=== PATIENT | male | born 1980 | race Caucasian/White ===

== ENCOUNTER → 2018-10-05 | Outpatient (CLI) | payer OTHER ==
[~2018-10-05] MED LIST: IOPAMIDOL (ISOVUE-370) 150 ML BTL IV ONE
== END | disposition home or self-care (01) ==
LOC: CIMAGING 14:39
PROVIDERS: ATTEND Internal Medicine Cardiovascular Disease
DX: R79.89 Other specified abnormal findings of blood chemistry (principal); I51.7 Cardiomegaly; R93.1 Abnormal findings on diagnostic imaging of heart and coronary circulation
CPT/HCPCS: 71275-PO; Q9967

== ENCOUNTER 2018-10-11 11:03 | Inpatient (IN) | payer OTHER ==
[2018-10-11] MEDS ORDERED: FAMOTIDINE 20 MG TAB PO ONE (11:04)
[2018-10-11] MEDS ORDERED: diphenhydrAMINE 25 MG CAP PO ONE (11:04)
[2018-10-11] MEDS ORDERED: NS 1,000 ML IV ONE (11:04)
[2018-10-11] MEDS ORDERED: ASPIRIN EC 325 MG TAB PO ONE (11:04)
[2018-10-11] MEDS ORDERED: DIAZEPAM 5 MG TAB PO ONE (11:04)
[2018-10-11] MEDS ORDERED: MIDAZOLAM 2 MG/2 ML VIAL ONE (11:17)
[2018-10-11] MEDS ORDERED: fentaNYL 100 MCG/2 ML INJ ONE (11:17)
[2018-10-11] MEDS ORDERED: LIDOCAINE 1% 300 MG/30 ML SDV ONE (11:17)
[2018-10-11] MEDS ORDERED: IOPAMIDOL (ISOVUE 370) 100 ML BTL IV ONE (11:18)
[2018-10-11 11:43] LABS: PLATELET COUNT 193 10^3/uL (150-400)
[2018-10-11 11:55] LABS: INR 1.27 (0.83-1.16); PROTIME(PATIENT) 16.1 SEC (12.0-15.0)
--- NOTE | 2018-10-11 12:22 | PDPROPOC ---
Sedation Plan of Care Sedation Plan of Care: vital signs stable, mental status noted, patient educated of risks, benefits, alternatives, patient can tolerate sedation ASA Classification: ASA 2 Planned drugs: fentanyl, midazolam Mallampati Score: Class 2 Mallampati Reference Image: Patient passed 3-3-2 rule?: Yes
--- NOTE | 2018-10-11 12:22 | PDHPUP ---
History & Physical Update H&P update statement: This history and physical update is based on an assessment of the patient which was completed after admission or registration (within 24 hours), but prior to the surgery/procedure. H&P update: H&P reviewed & patient examined, no change in patient's condition since H&P completed
[2018-10-11] MEDS ORDERED: NITROGLYCERIN 0.4 MG BTL SL PRN (13:17)
[2018-10-11] MEDS ORDERED: ONDANSETRON 4 MG/2 ML VIAL IVP PRN (13:17)
[2018-10-11] MEDS ORDERED: ATROPINE SULFATE 1 MG/10 ML SYR IVP PRN (13:17)
--- NOTE | 2018-10-11 13:37 | CPIP ---
DATE OF PROCEDURE: 10/11/2018 PROCEDURE: 1. Coronary angiography. 2. Left ventriculography. 3. Right heart catheterization. INDICATION: 1. Cardiomyopathy with an ejection fraction of 10% by echocardiography. 2. Congestive heart failure, which would be class III. ACCESS: Patient was prepped and draped in sterile fashion. 1% lidocaine was used to anesthetize the right inguinal region. A 6-Georgian introducer sheath was placed selectively into the right common fe moral artery via modified Seldinger technique. A 7-Georgian introducer sheath was placed selectively i n the common femoral vein via modified Seldinger technique. CORONARY ANGIOGRAPHY: A 6-Georgian JL4 was advanced to the left main coronary artery and images obtain ed. The left main coronary artery trifurcated into an LAD, ramus, and circumflex coronary arteries. The left main coronary artery appeared normal. The left anterior descending coronary artery gave ri se to 1 prominent diagonal branch. The left anterior descending coronary artery and its diagonal bra nch appeared normal. The ramus coronary artery is a lcerhotp-dz-eacci sized vessel. The ramus coron rosalba artery appeared normal. The circumflex coronary artery was a large vessel, but was nondominant. The circumflex coronary artery gave rise to 2 prominent OM branches. The circumflex coronary artery and its OM branches appeared normal. A 6-Georgian JR4 was advanced to the right coronary artery and images obtained. The right coronary art linda is dominant. The right coronary artery appeared normal. LEFT VENTRICULOGRAPHY: A 6-Georgian pigtail catheter was advanced in the left ventricle and images obt ained. The left ventricle was dilated in size with severely reduced systolic function. Estimated ej ection fraction was 10%. The left ventricular end-diastolic pressure was elevated at 40 mmHg. RIGHT HEART CATHETERIZATION: A pulmonary artery catheter were advanced in the right atrium and press ure obtained. The right atrial pressure was 26 mmHg. The catheter was then advanced in the right ve ntricle and pressure obtained. The right ventricular pressure was 63/8 mmHg. The catheter was then advanced in the pulmonary artery position and pressure and sat obtained. The pulmonary artery pressu re was 63/31 mmHg. The pulmonary artery saturation was 70.9%. The catheter was then advanced in wed ge position and pressure obtained. The pulmonary capillary wedge pressure was 26 mmHg. The femoral artery saturation was 89.9%. Cardiac output was 8.1 L/minute. Cardiac index 3.22. COMPLICATIONS: None. CONCLUSIONS: 1. Normal coronary arteries. 2. Severely reduced left ventricular systolic function, elevated pulmonary capillary wedge pressure, and left ventricular end-diastolic pressure consistent with congestive heart failure. /[id number]/MODL
[2018-10-11] MEDS ORDERED: ADDERALL 20 MG TAB PO PRN (15:43)
[2018-10-11] MEDS ORDERED: PROTOCOL K PHOSPHATE 1 DOSE IV PRN (15:45)
[2018-10-11] MEDS ORDERED: PROTOCOL POTASSIUM 1 DOSE MISC PRN (15:45)
[2018-10-11] MEDS ORDERED: PROTOCOL MAGNESIUM 1 DOSE IV PRN (15:45)
[2018-10-11] MEDS ORDERED: LORazepam 2 MG/ML INJ IVP PRN (16:03)
[2018-10-11] MEDS ORDERED: FLUMAZENIL 0.5 MG/5 ML MDV IVP PRN (16:03)
[2018-10-11] MEDS ORDERED: LORazepam 1 MG TAB PO PRN (16:07)
--- NOTE | 2018-10-11 16:36 | SOAPPROG ---
SOAP Progress Note Assessment/Plan: Assessment: Plan: Objective: Vital Signs Temp Pulse Resp BP Pulse Ox 14 135/92 H 94 10/11/18 15:55 10/11/18 15:46 10/11/18 15:55 Laboratory Results 10/11/18 11:15 10/11/18 11:15 PT 16.1 SEC (12.0-15.0) H 10/11/18 11:15 INR 1.27 (0.83-1.16) H 10/11/18 11:15
[2018-10-11] MEDS: FUROSEMIDE 40 MG/4 ML VIAL IVP SCH (16:44)
--- NOTE | 2018-10-11 17:47 | CPEKG ---
Test Reason : OPEN Blood Pressure : / mmHG Vent. Rate : 114 BPM Atrial Rate : 114 BPM P-R Int : 164 ms QRS Dur : 099 ms QT Int : 362 ms P-R-T Axes : 053 110 021 degrees QTc Int : 499 ms Sinus tachycardia Probable left atrial enlargement Right axis deviation Borderline prolonged QT interval Confirmed by Kristina Kearns ([id number]) on 10/11/2018 5:46:48 PM Referred By: William Gonzalez Confirmed By:Kristina Kearns
[2018-10-11] MEDS ORDERED: VODKA 50 ML BOTTLE PO SCH (18:00)
--- NOTE | 2018-10-11 20:25 | PDHOSCONS ---
<Lorri Francis - Last Filed: 10/11/18 20:56> History and Physical - Chief Complaint Alcohol abuse - History of Present Illness This is a 38 y/o male with history of opiate and alcohol abuse disorder presenting with approximately 30 lbs weight gain in the last month and bilateral lower extremity edema. Hospital medicine has been asked to consult. He presented to cardiology clinic (Dr. La) on 10/05/18 because of weight gain , abdominal distention, pedal edema as well as apneic epidoes at night. He has increased fatigue and decreased appetite. D-dimer at time of evaluation was elevated. He had a chest CTA and was negative for PE. He followed up with recommended ECHO which revealed cardiomyopathy with EF of 10% and congestive heart failure class III. Today he was cathed and results were normal coronary arteries however severely reduced left ventricular systolic function, elevated pulmonary capillary wedge pressure, and left ventricular end-diastolic pressure consistent with congestive heart failure. The pt has a long history of opiate and alcohol abuse. In 2011, he sought inpatient help and then outpatient rehabilitation for opiate and alcohol abuse but he left early due to unknown reasons. He reportedly is no longer using opiates and uses Suboxone for multiple chronic pain issues. He continues to abuse alcohol to a great extent - he drinks 1.75L of vodka every 2-3 days and his has found more alcohol in his bags. Past Medical/Surgical History 1. Alcohol use disorder 2. Hx of opiate abuse 3. Hypertension 4. ADHD 5. Suspected Obstructive Sleep Apnea Social 1. , employed at a [email or web address], desk job 2. Denies tobacco or illicit drug use. Heavy alcohol use but denies amount reported History Information - Allergies/Home Medication List Allergies/Adverse Reactions: No Known Allergies Allergy (Verified 10/09/18 10:15) Home Medications: Amphet Asp and D/Amphet [Adderall 20 mg (*)] 20 mg PO TID PRN 06/16/11 [Last Taken 10/11/18] Buprenorphine HCl/Naloxone HCl [Suboxone 8 mg-2 mg Sl Film] 1 each SL HS [Last Taken 10/11/18] I have personally reviewed and updated: family history, medical history, social history, surgical history Past Medical History: See HPI list - Surgical History Additional surgical history: See HPI list - Family History Positive for: myocardial infarction Additional family history: Heart failure - Social History Smoking Status: Never smoked Alcohol Use: Heavy Drug Use: None Review of Systems Review of Systems: ROS: 10pt was reviewed & negative except for what was stated in HPI & below Constitutional: Reports: other (Fatigue; weight gain) EENMT: Reports: no symptoms Cardiac: Reports: no symptoms Respiratory: Reports: no symptoms Gastrointestinal: Reports: abdominal distention Genitourinary: Reports: no symptoms Muscolosketal: Reports: back pain (Chronic) Skin: Reports: no symptoms Neurological: Reports: emotional problems Hematologic/Lymphatic: Reports: no symptoms Immunologic/Allergy: Reports: no symptoms Physical Exam Physical Exam: He refused physical examination. The pt was doing miscellaneous tasks in his room when I saw him (putting his belongings away, fidgeting), appeared tired, in no apparent distress, no pain. Temp Pulse Resp BP Pulse Ox 107 H 16 140/107 H 90 L 10/11/18 16:47 10/11/18 16:47 10/11/18 16:47 10/11/18 16:47 Lab Data & Imaging Review 10/11/18 11:15 10/11/18 18:00 WBC 6.73 10^3/uL (3.80-9.50) 10/11/18 11:15 RBC 4.82 10^6/uL (4.40-6.38) 10/11/18 11:15 Hgb 16.4 g/dL (13.7-17.5) 10/11/18 11:15 Hct 48.9 % (40.0-51.0) 10/11/18 11:15 MCV 101.5 fL (81.5-99.8) H 10/11/18 11:15 MCH 34.0 pg (27.9-34.1) 10/11/18 11:15 MCHC 33.5 g/dL (32.4-36.7) 10/11/18 11:15 RDW 12.6 % (11.5-15.2) 10/11/18 11:15 Plt Count 193 10^3/uL (150-400) 10/11/18 11:15 MPV 9.2 fL (8.7-11.7) 10/11/18 11:15 Neut % (Auto) 58.2 % (39.3-74.2) 10/11/18 11:15 Lymph % (Auto) 23.2 % (15.0-45.0) 10/11/18 11:15 Acadia % (Auto) 16.8 % (4.5-13.0) H 10/11/18 11:15 Eos % (Auto) 0.9 % (0.6-7.6) 10/11/18 11:15 Baso % (Auto) 0.6 % (0.3-1.7) 10/11/18 11:15 Nucleat RBC Rel Count 0.0 % (0.0-0.2) 10/11/18 11:15 Absolute Neuts (auto) 3.92 10^3/uL (1.70-6.50) 10/11/18 11:15 Absolute Lymphs (auto) 1.56 10^3/uL (1.00-3.00) 10/11/18 11:15 Absolute Monos (auto) 1.13 10^3/uL (0.30-0.80) H 10/11/18 11:15 Absolute Eos (auto) 0.06 10^3/uL (0.03-0.40) 10/11/18 11:15 Absolute Basos (auto) 0.04 10^3/uL (0.02-0.10) 10/11/18 11:15 Absolute Nucleated RBC 0.00 10^3/uL (0-0.01) 10/11/18 11:15 Immature Gran % 0.3 % (0.0-1.1) 10/11/18 11:15 Immature Gran # 0.02 10^3/uL (0.00-0.10) 10/11/18 11:15 PT 16.1 SEC (12.0-15.0) H 10/11/18 11:15 INR 1.27 (0.83-1.16) H 10/11/18 11:15 Sodium 144 mEq/L (135-145) 10/11/18 11:15 Potassium 4.8 mEq/L (3.5-5.2) 10/11/18 18:00 Chloride 107 mEq/L (97-110) 10/11/18 11:15 Carbon Dioxide 26 mEq/l (22-31) 10/11/18 11:15 Anion Gap 11 mEq/L (6-14) 10/11/18 11:15 BUN 15 mg/dL (7-23) 10/11/18 11:15 Creatinine 0.7 mg/dL (0.7-1.3) 10/11/18 11:15 Estimated GFR > 60 10/11/18 11:15 Glucose 85 mg/dL (70-100) 10/11/18 11:15 Calcium 9.1 mg/dL (8.5-10.4) 10/11/18 11:15 Phosphorus 4.5 mg/dL (2.5-4.5) 10/11/18 18:00 Magnesium 1.6 mg/dL (1.6-2.3) 10/11/18 18:00 Triglycerides 72 mg/dL (40-150) 10/11/18 11:15 Cholesterol 167 mg/dL (140-200) 10/11/18 11:15 Cholesterol Risk Factr 0.5 (0.2-1.0) 10/11/18 11:15 LDL Cholesterol, Calc 101 mg/dL (70-100) H 10/11/18 11:15 LDL Risk Factor 0.8 (0.2-1.0) 10/11/18 11:15 VLDL Cholesterol 14 mg/dL (8-25) 10/11/18 11:15 Non-HDL Cholesterol 115 mg/dL (90-129) 10/11/18 11:15 HDL Cholesterol 52 mg/dL (40-65) 10/11/18 11:15 LDL/HDL Ratio 1.93 RATIO (1.00-3.64) 10/11/18 11:15 Cholesterol/HDL Ratio 3.21 RATIO (1.00-4.97) 10/11/18 11:15 Assessment & Plan Plan: 38 y/o male with history of alcohol use disorder went [place] [facility] [employer] today with results of ejection fraction of 10%, cardiomyopathy, and congestive heart failure. 1. Reduced EF CHF: multi-factorial however do believe his heavy alcohol use is a major contributing factor 2. Alcohol abuse disorder: I spoke at length with the pt regarding the detrimental effects his alcohol use is putting on his body including his heart. He knows he should quit but he does not want to begin tonight. He was dismissive of my attempts to educate him. Dr. Gonzalez ordered vodka for him to take tonight so he does not withdrawal. -CIWA scale initiated -Cont tele/pulse ox monitoring -Ativan and valium PRN 3. Suspected sleep apnea: He should follow up outpatient with a track repair laborer to have a sleep study performed. Diet: Cardiac Code: Full <Lesly De La Cruz - Last Filed: 10/11/18 21:31> History and Physical - History of Present Illness Review of Systems Review of Systems: Physical Exam Physical Exam: Temp Pulse Resp BP Pulse Ox 36.8 C 108 H 16 136/96 H 93 10/11/18 20:00 10/11/18 20:00 10/11/18 20:00 10/11/18 20:00 10/11/18 20:00 Lab Data & Imaging Review 10/11/18 11:15 10/11/18 18:00 WBC 6.73 10^3/uL (3.80-9.50) 10/11/18 11:15 RBC 4.82 10^6/uL (4.40-6.38) 10/11/18 11:15 Hgb 16.4 g/dL (13.7-17.5) 10/11/18 11:15 Hct 48.9 % (40.0-51.0) 10/11/18 11:15 MCV 101.5 fL (81.5-99.8) H 10/11/18 11:15 MCH 34.0 pg (27.9-34.1) 10/11/18 11:15 MCHC 33.5 g/dL (32.4-36.7) 10/11/18 11:15 RDW 12.6 % (11.5-15.2) 10/11/18 11:15 Plt Count 193 10^3/uL (150-400) 10/11/18 11:15 MPV 9.2 fL (8.7-11.7) 10/11/18 11:15 Neut % (Auto) 58.2 % (39.3-74.2) 10/11/18 11:15 Lymph % (Auto) 23.2 % (15.0-45.0) 10/11/18 11:15 Acadia % (Auto) 16.8 % (4.5-13.0) H 10/11/18 11:15 Eos % (Auto) 0.9 % (0.6-7.6) 10/11/18 11:15 Baso % (Auto) 0.6 % (0.3-1.7) 10/11/18 11:15 Nucleat RBC Rel Count 0.0 % (0.0-0.2) 10/11/18 11:15 Absolute Neuts (auto) 3.92 10^3/uL (1.70-6.50) 10/11/18 11:15 Absolute Lymphs (auto) 1.56 10^3/uL (1.00-3.00) 10/11/18 11:15 Absolute Monos (auto) 1.13 10^3/uL (0.30-0.80) H 10/11/18 11:15 Absolute Eos (auto) 0.06 10^3/uL (0.03-0.40) 10/11/18 11:15 Absolute Basos (auto) 0.04 10^3/uL (0.02-0.10) 10/11/18 11:15 Absolute Nucleated RBC 0.00 10^3/uL (0-0.01) 10/11/18 11:15 Immature Gran % 0.3 % (0.0-1.1) 10/11/18 11:15 Immature Gran # 0.02 10^3/uL (0.00-0.10) 10/11/18 11:15 PT 16.1 SEC (12.0-15.0) H 10/11/18 11:15 INR 1.27 (0.83-1.16) H 10/11/18 11:15 Sodium 144 mEq/L (135-145) 10/11/18 11:15 Potassium 4.8 mEq/L (3.5-5.2) 10/11/18 18:00 Chloride 107 mEq/L (97-110) 10/11/18 11:15 Carbon Dioxide 26 mEq/l (22-31) 10/11/18 11:15 Anion Gap 11 mEq/L (6-14) 10/11/18 11:15 BUN 15 mg/dL (7-23) 10/11/18 11:15 Creatinine 0.7 mg/dL (0.7-1.3) 10/11/18 11:15 Estimated GFR > 60 10/11/18 11:15 Glucose 85 mg/dL (70-100) 10/11/18 11:15 Calcium 9.1 mg/dL (8.5-10.4) 10/11/18 11:15 Phosphorus 4.5 mg/dL (2.5-4.5) 10/11/18 18:00 Magnesium 1.6 mg/dL (1.6-2.3) 10/11/18 18:00 Triglycerides 72 mg/dL (40-150) 10/11/18 11:15 Cholesterol 167 mg/dL (140-200) 10/11/18 11:15 Cholesterol Risk Factr 0.5 (0.2-1.0) 10/11/18 11:15 LDL Cholesterol, Calc 101 mg/dL (70-100) H 10/11/18 11:15 LDL Risk Factor 0.8 (0.2-1.0) 10/11/18 11:15 VLDL Cholesterol 14 mg/dL (8-25) 10/11/18 11:15 Non-HDL Cholesterol 115 mg/dL (90-129) 10/11/18 11:15 HDL Cholesterol 52 mg/dL (40-65) 10/11/18 11:15 LDL/HDL Ratio 1.93 RATIO (1.00-3.64) 10/11/18 11:15 Cholesterol/HDL Ratio 3.21 RATIO (1.00-4.97) 10/11/18 11:15 Assessment & Plan Assessment: CHF (congestive heart failure) (Acute) Plan: Patient seen and evaluated independently, care plan reviewed with CASEY Francis and agree with her assessment and plan as outlined above. Please see separate note for further details
--- NOTE | 2018-10-11 21:35 | HOSPPROG ---
Hospitalist Progress Note Assessment/Plan: 38 yo M with PMH of alcohol abuse as well as opiate abuse in remission currently on suboxone presenting to cardiology with complaints of 30 pound weight gain over the last month with abdominal and lower extremity edema found to have an EF of 10% # acute systolic heart failure: with EF of 10% and what appears to be a dilated CM on echo, taken for cath today and no significant CAD noted, this is all likely related to etoh abuse. Patient admitted for diuresis and started on lasix 40mg IVP daily for now and will monitor I's/O's. No significant pulmonary edema noted on CT imaging and patient without significant hypoxia. Will need to be started on PATRICIA or ARB but holding off on that for now per cardiology pending diuresis # dilated CM: as above # alcohol use disorder, severe, and alcohol withdrawal: patient defensive and not very interested in discussing importance of quitting drinking at this point , states he has heard it from too many people already, started on ciwa with addition of 1 vodka drink daily per cardiology as well as mvi/thiamine/folate. Will need to be an ongoing discussion and patient would likely benefit from IP treatment if he would be amenable # opiate use disorder in remission: continued on suboxone # stacey: will need formal sleep study as an OP # IP status, will need > 48 hours stay for eval/mgmt of above Patient new to my care. Old records reviewed and summarized as above. Care plan reviewed with cardiology as well as CASEY Francis, please see her H&P consult for further details. Objective: Vital Signs Temp Pulse Resp BP Pulse Ox 36.8 C 108 H 16 136/96 H 93 10/11/18 20:00 10/11/18 20:00 10/11/18 20:00 10/11/18 20:00 10/11/18 20:00 Laboratory Results 10/11/18 11:15 10/11/18 18:00 10/10/18 10/11/18 10/12/18 05:59 05:59 05:59 Output Total 800 Balance -800 PT 16.1 SEC (12.0-15.0) H 10/11/18 11:15 INR 1.27 (0.83-1.16) H 10/11/18 11:15 ICD10 Worksheet Patient Problems: Problems Problem Status Onset CHF (congestive heart failure) Acute
[2018-10-11] MEDS: NALOXONE HCL SL SCH (21:58)
[2018-10-11] MEDS: BUPRENORPHINE HCL SL SCH (21:58)
[2018-10-12 04:56] LABS: PLATELET COUNT 200 10^3/uL (150-400)
--- NOTE | 2018-10-12 06:46 | PDMN ---
Medical Necessity Medical necessity: Pt meets inpt criteria per MD order and MCG M-190, Heart Failure. 38 y/o presenting w/abd and LE edema and 30# wt gain over past month, underwent R and L heart cath and found to have EF 10% w/severely reduced L ventricular systolic function, ECHO suggests dilated CM, tachycardic, admitted w/acute CHF requiring IV Lasix diuresis. PMHx of opiate abuse in remission currently- on Suboxone for mult chronic pain issues, past and current alcohol abuse. Est LOS>2MN for eval/management of above.
[2018-10-12] MEDS ORDERED: MAGNESIUM SULF 1 GM/DEXTROSE 100 ML IV ONE (07:40)
[2018-10-12] MEDS: FUROSEMIDE 40 MG/4 ML VIAL IVP SCH (08:04)
[2018-10-12] MEDS: THIAMINE HCL 500 MG in NS 100 ML IV SCH (08:04)
[2018-10-12] MEDS ORDERED: FUROSEMIDE 40 MG/4 ML VIAL IVP SCH (09:00)
[2018-10-12] MEDS ORDERED: VODKA 50 ML BOTTLE PO ONE (09:27)
--- NOTE | 2018-10-12 13:09 | SOAPPROG ---
[place] Progress Note Assessment/Plan: 1. cardiomyopathy - patient has a nonischemic cardiomyopathy. Angiogram on 10/11 demonstrated normal coronary arteries. Echocardiogram on 10/08/2018 demonstrated moderate mitral regurgitation and severe tricuspid regurgitation. No prolong tachy arrhythmias noted on telemetry monitoring. Patient does have a history of significant alcohol intake. Suspect alcohol induced cardiomyopathy. His LVEF is approximately 10%. Patient reports approximately a 30 lb weight gain over the last month. Patient has diuresed approximately 8 kg. He remains volume overloaded. --> Continue diuresis --> Start lisinopril 5 mg daily --> Pt has appointment with Dr. Maldondao on Monday at 10 am. --> Consider coreg with CHF stable 2. HTN - BP remains moderately elevated. Will start lisinopril 5 mg daily. 3. ETOH use/abuse - Patient is not interested in cessation at this time. Appreciate hospitalist input. 10/12/18 13:09 Subjective: No chest pain. Positive dyspnea Difficulty sleeping last night Edema improved Objective: Vital Signs Temp Pulse Resp BP Pulse Ox 36.6 C 73 12 138/74 H 96 10/12/18 11:13 10/12/18 11:13 10/12/18 11:13 10/12/18 11:13 10/12/18 11:13 Laboratory Results 10/12/18 03:20 10/12/18 03:20 10/11/18 10/12/18 10/13/18 05:59 05:59 05:59 Intake Total 700 Output Total 800 Balance -100 PT 16.1 SEC (12.0-15.0) H 10/11/18 11:15 INR 1.27 (0.83-1.16) H 10/11/18 11:15 Physical Exam - Physical Exam General Appearance: alert, no apparent distress Respiratory: crackles Cardiac/Chest: regular rate, rhythm, tachycardia Abdomen: other (Distended) Extremities: pedal edema Neuro/Psych: other (Tremulous) ICD10 Worksheet Patient Problems: Problems Problem Status Onset CHF (congestive heart failure) Acute
[2018-10-12] MEDS: LORazepam 1 MG TAB PO PRN ×2 (13:20→20:29)
--- NOTE | 2018-10-12 15:54 | HOSPPROG ---
Hospitalist Progress Note Assessment/Plan: 38 yo M with PMH of alcohol abuse as well as opiate abuse in remission currently on suboxone presenting to cardiology with complaints of 30 pound weight gain over the last month with abdominal and lower extremity edema found to have an EF of 10%. Acute systolic heart failure- Echo with LVEF of 10%. Cath with no obstructive CAD. likely 2/2 to heavy alcohol use. Case discussed [facility] cardiology who recommends medical optimization, hold bb for now. -contine aggressive diuresis -rowena added today -stop etoh -cards following Etoh Dependence- he admits he is not ready to quit but thinks he will "slow down ". CIWA ordered and getting TID vodka. opiate use disorder in remission: continued on suboxone stacey: will need formal sleep study as an OP IP status, will need > 48 hours stay for eval/mgmt of above Fluids-None Lytes- WNL Nutrition- cardiac Cor- Full Dispo- inpatinet for CHF, etoh wd patient new to my care. chart reviewed. Subjective: patient admits he feels very anxious this morning. tremulous hands. honestly not interested in quitting. Objective: Vital Signs Temp Pulse Resp BP Pulse Ox 36.6 C 73 12 138/74 H 96 10/12/18 11:13 10/12/18 11:13 10/12/18 11:13 10/12/18 11:13 10/12/18 11:13 Laboratory Results 10/12/18 03:20 10/12/18 03:20 10/11/18 10/12/18 10/13/18 05:59 05:59 05:59 Intake Total 700 Output Total 800 Balance -100 PT 16.1 SEC (12.0-15.0) H 10/11/18 11:15 INR 1.27 (0.83-1.16) H 10/11/18 11:15 - Physical Exam Constitutional: no apparent distress, appears nourished, not in pain Eyes: PERRL, anicteric sclera, EOMI Ears, Nose, Mouth, Throat: moist mucous membranes, hearing normal, ears appear normal, no oral mucosal ulcers Cardiovascular: no murmur, rub, or gallop, tachycardia, edema Respiratory: no respiratory distress, no rales or rhonchi, clear to auscultation Gastrointestinal: normoactive bowel sounds, soft, non-tender abdomen, no palpable masses Genitourinary: no bladder fullness, no bladder tenderness, no renal bruits Skin: no rashes or abrasions, no fluctuance, no induration Musculoskeletal: full muscle strength, no muscle tenderness, normal joint ROM Neurologic: AAOx3, sensation intact bilaterally Psychiatric: interacting appropriately, not encephalopathic, anxious, other ( appears anxious and tremulous. ) Lymph, Heme, Immunologic: no cervical LAD, no supraclavicular LAD ICD10 Worksheet Patient Problems: Problems Problem Status Onset CHF (congestive heart failure) Acute
[2018-10-12] MEDS: VODKA 50 ML BOTTLE PO SCH ×2 (16:28→21:56)
[2018-10-12] MEDS: LISINOPRIL 5 MG TAB PO SCH (16:28)
[2018-10-12] MEDS: LIDOCAINE 4%/MENTHOL 1% PATCH TD SCH (17:40)
[2018-10-12] MEDS: BUPRENORPHINE HCL SL SCH (20:40)
[2018-10-12] MEDS: NALOXONE HCL SL SCH (20:40)
--- NOTE | 2018-10-12 20:47 | ASMTCMCOM ---
CM Note CM Note Notes: 10/12/2018 Case Management Note Pt admitted for CHF and ETOH withdrawl. Met w/pt in the morning. Pt unwilling to engage in conversation about alcohol consumption. Pt has completed inpatient rehab twice at [facility] approximately 6 years ago. Pt is currently on suboxone through Dr. Edwin Torre [place]. At this time pt refuses resources and does not want to stop drinking. Met w/jolene Leann [phone]. Leann reports pt achieved sobriety for 3 - 6 months after [facility] treatment and then started using alcohol. Currently Leann estimates pt consumes 3 handles of vodka per week. Pt drinks round the clock, per Leann, mixing vodka into gatorade during the day and switching to cocktails late in the afternoon. Arranged Palliative Care meeting with Tiffany for pt to discuss goals of care. Encouraged to use insurance benefits to find counselor for support. 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 Pt mother lives in [place] and is support for both, father in his early 60's. is hopeful pt will consider inpatient rehab. explored [employer] coverage and pt has inpatient options including [facility], [facility], [facility], [facility], [facility], [facility]. Informed that pt has to call and complete assessment screening for admittance to a program. Case Management d/c poc: to be determined. Date Signed: 10/12/2018 04:22 PM Electronically Signed By:Marilyn Dunn RN
[2018-10-13] MEDS: LORazepam 1 MG TAB PO PRN ×3 (01:06→16:07)
[2018-10-13] MEDS: PATCH REMOVAL 1 EA PATCH TD SCH (04:51)
[2018-10-13] MEDS ORDERED: MAGNESIUM SULF 1 GM/DEXTROSE 100 ML IV ONE (07:43)
--- NOTE | 2018-10-13 08:08 | PDCARPN ---
Cardiology Progress Note Assessment/Plan: Assessment/plan: 38-year-old male with acute systolic heart failure, hypertension, probable sleep apnea, past opiate abuse and ongoing alcohol abuse. Admitted from Cardiology Clinic on 10/11 for right left heart catheterization after outpatient echo showed severely depressed ejection fraction of 10% and he was clinically in florid heart failure. Catheterization demonstrated markedly elevated wedge pressure, preserved cardiac output, normal coronaries. He has diuresed approximately 15 kg over the past 36 hr. 1. Acute systolic heart failure: Etiology is likely related to heavy alcohol use, sleep apnea, and perhaps hypertension. He does have valvular disease that I believe is secondary to annular dilation and not the primary etiology of his cardiomyopathy. He is diuresing well with IV Lasix. Will increase to twice daily dosing today and consider switching to oral diuretics tomorrow. Today will add spironolactone. He tolerated initiation of lisinopril yesterday. Given his ventricular triplet on telemetry, I would like to try low-dose Coreg, but we will need to follow him closely as he is likely relying on some of his tachycardia to maintain cardiac output. Follow electrolytes closely. He has required magnesium supplementation and I will also put him on daily oral magnesium. Of note, TSH was normal on 10/05. I have ordered iron studies to rule out hemochromatosis ptosis as an etiology of his heart failure. Strict I&O , daily weights, 1500 cc fluid restriction, and low-salt diet. Approximately 30 min was spent in direct patient care today, reviewing the plan , explaining rationale behind drug therapy, and trying to help the patient understand that long-term follow-up will be absolutely necessary for his improved cardiovascular health. He does have a follow-up appointment with Dr. Damián Lui on October 15 at 10:00 a.m.. 2. Alcohol abuse: In the hospital he has required three times daily vodka and p.r.n. Ativan/CIWA. Initially he was recalcitrant to the idea of alcohol cessation, but now says he would consider at some point. He does understand that his alcohol abuse is significantly impacting his heart failure. Continue thigh min. 3. Hypertension: Lisinopril. Trial of low-dose Coreg. 4. Valvular heart disease: This is likely secondary to his LV dilation. Will need serial follow-up. 5. Likely sleep apnea: Outpatient evaluation. 10/13/18 08:03 Subjective: He denies significant dyspnea. He states he feels fine when walking. He is not dizzy. He denies palpitations. He is still sleeping with the head of the bed at 30 degrees. He reports that overall as lower extremity edema has improved since admission. Reviewed/Discussed With: multidisciplinary team Time Spent with Patient: greater than 25 minutes Time Spent with Patient: Greater than 25 minutes spent on this patients care, greater than 50% of time spent counseling, educating, and coordinating care regarding the above mentioned plan. Objective: Vital Signs (8 Hrs) Temp Pulse Resp BP Pulse Ox 10/13/18 04:00 37.0 C 120 H 16 142/101 H 93 Intake/Output (24 Hrs) 10/12/18 10/13/18 10/14/18 05:59 05:59 05:59 Intake Total 700 650 Output Total 800 775 Balance -100 -125 Intake: Oral (ml) 700 550 IV Infused (ml) 100 Magnesium Sulf 1 gm/ 100 Dextrose 100 ml @ 100 mls /hr IV ONCE ONE Rx#: [id number] Output: Urine (ml) 800 775 Toilet 800 Urinal 775 Other: Weight 125.191 kg 115.3 kg Intake Quantity Yes Sufficient Output Comment Toilet Not compliant with I/O monitoring. Number of Voids Toilet 4 6 Urinal 1 Slightly anxious. JVP 12-14 cm of water. Tachycardic regular rhythm without murmur or gallop Lungs clear bilaterally without wheeze rhonchi rales 2+ pitting edema to the midshin bilaterally Alert and oriented x3. Slightly anxious. No gross focal neurologic deficits. Result Diagrams: 10/12/18 03:20 10/13/18 03:25 EKG: Reviewed: Sinus tachycardia with diffuse repolarization abnormalities Telemetry: Sinus rhythm and sinus tachycardia with 1 ventricular triplet 10/11 Echocardiogram: Reviewed: Severely depressed ejection fraction of 10% with severe global hypokinesis. Moderate mitral regurgitation and severe tricuspid regurgitation. ICD10 Worksheet Patient Problems: Problems Problem Status Onset CHF (congestive heart failure) Acute
[2018-10-13] MEDS: VODKA 50 ML BOTTLE PO SCH ×3 (09:11→20:58)
[2018-10-13] MEDS: CARVEDILOL 3.125 MG TAB PO SCH ×2 (09:11→17:57)
[2018-10-13] MEDS: SPIRONOLACTONE 25 MG TAB PO SCH (09:12)
[2018-10-13] MEDS: LISINOPRIL 5 MG TAB PO SCH (09:12)
[2018-10-13] MEDS: FUROSEMIDE 40 MG/4 ML VIAL IVP SCH ×2 (09:12→16:06)
[2018-10-13] MEDS: THIAMINE HCL 500 MG in NS 100 ML IV SCH (10:27)
[2018-10-13] MEDS: MAGNESIUM CHLORIDE 64 MG TAB PO SCH (11:49)
--- NOTE | 2018-10-13 13:43 | HOSPPROG ---
Hospitalist Progress Note Assessment/Plan: 38 yo M with PMH of alcohol abuse as well as opiate abuse in remission currently on suboxone presenting to cardiology with complaints of 30 pound weight gain over the last month with abdominal and lower extremity edema found to have an EF of 10%. Acute systolic heart failure- Echo with LVEF of 10%. Cath with no obstructive CAD. likely 2/2 to heavy alcohol use. Iron panel ordered to rule out hemochromatosis and his ferritin is 473 which is quite high. His iron saturation is 45%. Depending on which societies guidelines you chose to follow this could be suggestive of hemochromatosis. Oddly enough he does not have underlying liver disease, diabetes or classic bronzing of the skin. Will need to evaluate further. Case discussed with cardiology who recommends medical optimization, start trial of low-dose beta-abdias today -contine aggressive diuresis -rowena added yesterday -trial of Coreg today -stop etoh -cards following Etoh Dependence- he admits he is not ready to quit but thinks he will "slow down ". CIWA ordered and getting TID vodka. opiate use disorder in remission: continued on suboxone stacey: will need formal sleep study as an OP IP status, will need > 48 hours stay for eval/mgmt of above Fluids-None Lytes- WNL Nutrition- cardiac Cor- Full Dispo- inpatinet for CHF, etoh wd Objective: Vital Signs Temp Pulse Resp BP Pulse Ox 37.0 C 124 H 20 148/104 H 93 10/13/18 11:51 10/13/18 11:51 10/13/18 11:51 10/13/18 11:51 10/13/18 11:51 Laboratory Results 10/12/18 03:20 10/13/18 03:25 10/12/18 10/13/18 10/14/18 05:59 05:59 05:59 Intake Total 700 650 Output Total 800 775 750 Balance -100 -125 -750 PT 16.1 SEC (12.0-15.0) H 10/11/18 11:15 INR 1.27 (0.83-1.16) H 10/11/18 11:15 - Physical Exam Constitutional: no apparent distress, appears nourished, not in pain Eyes: PERRL, anicteric sclera, EOMI Ears, Nose, Mouth, Throat: moist mucous membranes, hearing normal, ears appear normal, no oral mucosal ulcers Cardiovascular: no murmur, rub, or gallop, tachycardia, edema Respiratory: no respiratory distress, no rales or rhonchi, clear to auscultation Gastrointestinal: normoactive bowel sounds, soft, non-tender abdomen, no palpable masses Genitourinary: no bladder fullness, no bladder tenderness, no renal bruits Skin: no rashes or abrasions, no fluctuance, no induration Musculoskeletal: full muscle strength, no muscle tenderness, normal joint ROM Neurologic: AAOx3, sensation intact bilaterally Psychiatric: interacting appropriately, not anxious, not encephalopathic, thought process linear Lymph, Heme, Immunologic: no cervical LAD, no supraclavicular LAD ICD10 Worksheet Patient Problems: Problems Problem Status Onset CHF (congestive heart failure) Acute
[2018-10-13] MEDS: LIDOCAINE 4%/MENTHOL 1% PATCH TD SCH (16:17)
[2018-10-13] MEDS: BUPRENORPHINE HCL SL SCH (20:54)
[2018-10-13] MEDS: NALOXONE HCL SL SCH (20:54)
[2018-10-14] MEDS: LORazepam 1 MG TAB PO PRN ×4 (04:28→21:15)
[2018-10-14] MEDS: PATCH REMOVAL 1 EA PATCH TD SCH (04:29)
[2018-10-14] MEDS ORDERED: MAGNESIUM SULF 1 GM/DEXTROSE 100 ML IV ONE (07:52)
[2018-10-14] MEDS: CARVEDILOL 3.125 MG TAB PO SCH (08:08)
[2018-10-14] MEDS ORDERED: CARVEDILOL 3.125 MG TAB PO ONE (09:26)
--- NOTE | 2018-10-14 09:28 | PDCARPN ---
Cardiology Progress Note Assessment/Plan: Assessment/plan: 38-year-old male with acute systolic heart failure, hypertension, probable sleep apnea, past opiate abuse and ongoing alcohol abuse. Admitted on 10/11 for right and left heart catheterization after outpatient echo showed severely depressed ejection fraction of 10% and he was clinically in florid heart failure. Catheterization demonstrated markedly elevated wedge pressure, preserved cardiac output, normal coronaries. He has diuresed approximately 12 kg since admission. 1. Acute systolic heart failure: Etiology is likely related to heavy alcohol use, sleep apnea, and perhaps hypertension. He does have valvular disease that I believe is secondary to annular dilation and not the primary etiology of his cardiomyopathy. He is diuresing well with IV Lasix; spironolactone was added October 13. He is on low-dose lisinopril. He tolerated low-dose Coreg yesterday. Will increase dose today. Of note, TSH was normal on 10/05. His iron studies show an elevated ferritin and iron saturation 45%. Would recommend outpatient hematology evaluation to definitively rule out hemochromatosis. Strict I&O, daily weights, 1500 cc fluid restriction, and low- salt diet. 2. Alcohol abuse: In the hospital he has required three times daily vodka and p.r.n. Ativan/CIWA. Initially he was recalcitrant to the idea of alcohol cessation, but now says he would consider. He does understand that his alcohol abuse is significantly impacting his heart failure. Best would be for him to stay and complete the process of coming off EtOH by stopping the alcohol, using ativan only and then tapering ativan. We spent a long time discussing other options including inpatient rehab facility or intensive outpatient management of alcohol cessation. The major concern is life threatening withdrawal or return to heavy drinking. Continue thiamine. 3. Hypertension: Uptitrate coreg. Continue lisinopril. 4. Valvular heart disease: This is likely secondary to his LV dilation. Will need serial follow-up. 5. Likely sleep apnea: Outpatient evaluation. Approximately 45 min was spent in direct patient care today, reviewing the plan , explaining rationale behind drug therapy, and trying to help the patient understand that long-term follow-up will be absolutely necessary for his improved cardiovascular health. Conference with patient and Dr. Condon. We have both recommended continuing inpatient care due to alcohol withdrawal and ongoing tachycardia. 10/14/18 09:28 Subjective: Overall feeling better. Denies dyspnea. Not lightheaded. He notes that his lower extremity edema is much improved. He does admit that he is anxious and would like to go home. Reviewed/Discussed With: hospitalist, multidisciplinary team Time Spent with Patient: greater than 25 minutes Time Spent with Patient: Greater than 25 minutes spent on this patients care, greater than 50% of time spent counseling, educating, and coordinating care regarding the above mentioned plan. Objective: Vital Signs (8 Hrs) Temp Pulse Resp BP Pulse Ox 10/14/18 07:23 36.7 C 120 H 18 142/112 H 91 L 10/14/18 07:15 87 L 10/14/18 03:53 36.8 C 102 H 16 125/106 H 94 Intake/Output (24 Hrs) 10/13/18 10/14/18 10/15/18 05:59 05:59 05:59 Intake Total 650 1040 Output Total 775 1550 Balance -125 -510 Intake: Oral (ml) 550 1040 IV Infused (ml) 100 Magnesium Sulf 1 gm/ 100 Dextrose 100 ml @ 100 mls /hr IV ONCE ONE Rx#: [id number] Output: Urine (ml) 775 1550 Urinal 775 1550 Other: Weight 115.3 kg 113.1 kg Intake Quantity Yes Sufficient Output Comment Toilet Not compliant with I/O monitoring. Number of Voids Toilet 6 2 Urinal 1 1 Slightly anxious but less tremulous than yesterday. Diaphoretic. JVP 10-12 cm water. Tachycardic regular rhythm without murmur or gallop. Lungs clear bilaterally without wheeze rhonchi rales Improving 1+ pitting pedal edema Result Diagrams: 10/12/18 03:20 10/14/18 03:15 Telemetry: Sinus tachycardia ICD10 Worksheet Patient Problems: Problems Problem Status Onset CHF (congestive heart failure) Acute
[2018-10-14] MEDS: FUROSEMIDE 40 MG/4 ML VIAL IVP SCH ×2 (10:45→16:53)
[2018-10-14] MEDS: LISINOPRIL 5 MG TAB PO SCH (10:47)
[2018-10-14] MEDS: SPIRONOLACTONE 25 MG TAB PO SCH (10:48)
--- NOTE | 2018-10-14 12:13 | ASMTCMCOM ---
CM Note CM Note Notes: Chart reviewed. Met with patient to review plan of care. 38 year old male with fulminant heart failure thought to be likely alcohol induced. We discussed his treatment options available as far as alcohol withdrawal and that he has in fact replaced his previous opiate addiction with alcohol. CM stressed to him that success at home "self tapering" alcohol was not likely to be successful and carried significant risk to his health. He is feeling that he has no control but expressed clearly he wants to go home and not seek withdrawal support here or at other inpatient facility. He reports he see's a psychiatrist for care. He denies depression and does not believe he self medicates with ETOH. He is tremulous despite his current doses of alcohol. CM explained that his medical team would feel it in his best interest to go through active withdrawal under medical supervision but again he is resistant. I have suggested that he make an action plan to demonstrate a sincere intent to stop alcohol by seeking follow up and choosing a program to help him. CM to follow for need. Plan: TBD Date Signed: 10/14/2018 12:13 PM Electronically Signed By:Tereza Calzada RN
[2018-10-14] MEDS: VODKA 50 ML BOTTLE PO SCH ×2 (12:26→17:37)
[2018-10-14] MEDS: THIAMINE HCL 500 MG in NS 100 ML IV SCH ×2 (12:28→13:50)
--- NOTE | 2018-10-14 15:32 | HOSPPROG ---
Hospitalist Progress Note Assessment/Plan: 38 yo M with PMH of alcohol abuse as well as opiate abuse in remission currently on suboxone presenting to cardiology with complaints of 30 pound weight gain over the last month with abdominal and lower extremity edema found to have an EF of 10%. Acute systolic heart failure- Echo with LVEF of 10%. Cath with no obstructive CAD. likely 2/2 to heavy alcohol use. Did have elevated ferritin and iron saturation which will need to be evaluated further in the outpatient setting. He has tolerated aggressive diuresis well. Started on low-dose Coreg yesterday along with lisinopril was she has also tolerated well. Discussed the patient with Cardiology with current plan to up titrate medications as able and continue diuresis. -contine aggressive diuresis -cont rowena -increase coreg to 6.25 BID -stop etoh -daily weights, I/O, salt/fluid restriction -cards following Etoh Dependence- initially said he was not going to quit and so was ordered three times daily vodka. Now saying he is going to go to detox after discharge. I ultimately made the decision to stop the patient's vodka and put him on CIWA protocol with Ativan -CIWA protocol -daily thiamine folic acid -patient wanted to leave today but I explained to him that he was still high risk for withdrawal and seizure and it would be against medical advice. opiate use disorder in remission: continued on suboxone stacey: will need formal sleep study as an OP IP status, will need > 48 hours stay for eval/mgmt of above Fluids-oral Lytes- WNL Nutrition- cardiac Cor- Full Dispo- inpatient for congestive heart failure and alcohol withdrawal Subjective: Wants to leave today, says he is going to go to detox, no chest pain shortness of breath or other complaints Objective: Vital Signs Temp Pulse Resp BP Pulse Ox 36.7 C 115 H 23 H 121/81 H 86 L 10/14/18 11:55 10/14/18 12:24 10/14/18 12:24 10/14/18 13:59 10/14/18 13:59 Laboratory Results 10/12/18 03:20 10/14/18 03:15 10/13/18 10/14/18 10/15/18 05:59 05:59 05:59 Intake Total 650 1040 Output Total 775 1550 1175 Balance -125 -510 -1175 PT 16.1 SEC (12.0-15.0) H 10/11/18 11:15 INR 1.27 (0.83-1.16) H 10/11/18 11:15 - Physical Exam Constitutional: no apparent distress, appears nourished, not in pain Eyes: PERRL, anicteric sclera, EOMI Ears, Nose, Mouth, Throat: moist mucous membranes, hearing normal, ears appear normal, no oral mucosal ulcers Cardiovascular: tachycardia, edema Respiratory: no respiratory distress, no rales or rhonchi, clear to auscultation Gastrointestinal: normoactive bowel sounds, soft, non-tender abdomen, no palpable masses Genitourinary: no bladder fullness, no bladder tenderness, no renal bruits Skin: no rashes or abrasions, no fluctuance, no induration Musculoskeletal: full muscle strength, no muscle tenderness, normal joint ROM Neurologic: AAOx3, sensation intact bilaterally Psychiatric: interacting appropriately, not encephalopathic, thought process linear, anxious, poor insight, poor judgement Lymph, Heme, Immunologic: no cervical LAD, no supraclavicular LAD ICD10 Worksheet Patient Problems: Problems Problem Status Onset CHF (congestive heart failure) Acute
[2018-10-14] MEDS: MAGNESIUM CHLORIDE 64 MG TAB PO SCH (16:53)
[2018-10-14] MEDS: CARVEDILOL 6.25 MG TAB PO SCH (18:26)
[2018-10-14] MEDS: LIDOCAINE 4%/MENTHOL 1% PATCH TD SCH (18:27)
[2018-10-14] MEDS: BUPRENORPHINE HCL SL SCH (21:17)
[2018-10-14] MEDS: NALOXONE HCL SL SCH (21:17)
[2018-10-15] MEDS ORDERED: ACETAMINOPHEN 325 MG TAB PO PRN (01:20)
[2018-10-15] MEDS ORDERED: KETOROLAC 15 MG/1 ML SDV IVP ONE (01:21)
[2018-10-15] MEDS: LORazepam 1 MG TAB PO PRN (01:32)
[2018-10-15] MEDS: PATCH REMOVAL 1 EA PATCH TD SCH (04:48)
[2018-10-15] MEDS: LISINOPRIL 5 MG TAB PO SCH (08:37)
[2018-10-15] MEDS: SPIRONOLACTONE 25 MG TAB PO SCH (08:37)
[2018-10-15] MEDS: CARVEDILOL 6.25 MG TAB PO SCH ×2 (08:37→18:03)
[2018-10-15] MEDS: THIAMINE HCL 100 MG TAB PO SCH (08:37)
[2018-10-15] MEDS: FUROSEMIDE 40 MG/4 ML VIAL IVP SCH (08:38)
--- NOTE | 2018-10-15 10:07 | PDCARPN ---
Cardiology Progress Note Assessment/Plan: Assessment/plan: 38-year-old male with acute systolic heart failure, hypertension, probable sleep apnea, past opiate abuse and ongoing alcohol abuse. Admitted on 10/11 for right and left heart catheterization after outpatient echo showed severely depressed ejection fraction of 10% and he was clinically in florid heart failure. Catheterization demonstrated markedly elevated wedge pressure, preserved cardiac output, normal coronaries. He has diuresed approximately 12 kg since admission. 1. Acute systolic heart failure: Etiology is likely related to heavy alcohol use, sleep apnea, and perhaps hypertension. He does have valvular disease that I believe is secondary to annular dilation and not the primary etiology of his cardiomyopathy. Transition to oral lasix. Spironolactone was added October 13. He is on low-dose lisinopril. He tolerated Coreg uptitration. Of note, TSH was normal on 10/05. His iron studies show an elevated ferritin and iron saturation 45%. Would recommend outpatient hematology evaluation to definitively rule out hemochromatosis. 1500 cc fluid restriction and low salt diet. 2. Alcohol abuse: In the hospital he initially required three times daily vodka and p.r.n. Ativan/CIWA. No alcohol since 10/13. Initially he was recalcitrant to the idea of alcohol cessation, but now says he would consider. He does understand that his alcohol abuse is significantly impacting his heart failure. Best would be for him to stay and complete the process of coming off EtOH by stopping the alcohol, using ativan only and then tapering ativan. The major concern is life threatening withdrawal or return to heavy drinking. Continue thiamine. 3. Hypertension: Much improved with Coreg and lisinopril. 4. Valvular heart disease: This is likely secondary to his LV dilation. Will need serial follow-up. 5. Likely sleep apnea: Outpatient evaluation. Approximately 35 min was spent in direct patient care today, reviewing the plan , explaining rationale behind drug therapy, and trying to help the patient understand that long-term follow-up will be absolutely necessary for his improved cardiovascular health. From a cardiac standpoint he is stable for discharge, but may need 1-2 more days to complete ativan taper. 10/15/18 10:44 Subjective: Denies SOB, CP, palpitations, presyncope. Would like to go home. Reviewed/Discussed With: family, multidisciplinary team Time Spent with Patient: greater than 25 minutes Time Spent with Patient: Greater than 25 minutes spent on this patients care, greater than 50% of time spent counseling, educating, and coordinating care regarding the above mentioned plan. Objective: Vital Signs (8 Hrs) Temp Pulse Resp BP Pulse Ox 10/15/18 07:42 36.6 C 113 H 18 120/91 H 94 10/15/18 04:00 36.3 C 108 H 14 126/96 H 93 Intake/Output (24 Hrs) 10/14/18 10/15/18 10/16/18 05:59 05:59 05:59 Intake Total 1040 1750 Output Total 1550 1925 Balance -510 -175 Intake: Oral (ml) 1040 1550 IV Infused (ml) 200 Protocol Magnesium 1 dose 100 (See Protocol) IV AD PRN Rx#:[id number] Thiamine HCl 500 mg In Ns 100 100 ml @ 210 mls/hr IV DAILY CRISTY Rx#:[id number] Output: Urine (ml) 1550 1925 Urinal 1550 1925 Other: Weight 113.1 kg 115.9 kg Intake Quantity Yes Sufficient Output Comment Catheter Female External Catheter Number of Voids Toilet 2 3 Urinal 1 Number of Stools Urinal 1 NAD, less tremulous JVP 10 RRR no m/r/g Lungs CTAB Improved 1+ edema to mid kenny bilaterally Result Diagrams: 10/12/18 03:20 10/15/18 03:40 Telemetry: NSR and sinus tachycardia ICD10 Worksheet Patient Problems: Problems Problem Status Onset CHF (congestive heart failure) Acute
--- NOTE | 2018-10-15 14:03 | HOSPPROG ---
Hospitalist Progress Note Assessment/Plan: 38yo M with history of alcohol and opiate abuse presented from cardiology clinic with significant weigh gain and edema found to have LVEF of 10%. 1. Acute systolic CHF: New diagnosis. Likely etoh-related. C clean. Weight down 10-12kg this admission. - Cardiology primary - Switched from IV to PO lasix today, follow I/Os and daily weights - Continue lisinopril, coreg, spironolactone 2. Etoh dependence and withdrawal: This is day 4. Required 8mg ativan yesterday , 6mg in the two days prior, which is concerning that his benzo requirements have gone up. - Lengthy discussion with him today re: risks of leaving prior to completion of withdrawal. He is willing to stay overnight - Continue CIWA - Involve CM for outpatient resources (AA, outpt rehab, etc) 3. Hyponatremia: Dropped with diuresis. Monitor. 4. Abnormal LFTs: Consistent with congestive hepatopathy. Improving. 5. Obesity: Needs outpatient sleep study. 6. Elevated ferritin: Mild and not at a level that causes end-organ damage typically. Should have outpt follow up. 7. Opiate use disorder: In remission. Continue home suboxone. VTE ppx: SCDs, ambulation Code: full Diet: cardiac Dispo: Remain inpatient for monitoring of diuresis and etoh withdrawal, likely will be stable for dc within next day (cardiology primary) Subjective: Feeling well, wanting to go home. Denies shortness of breath, chest pain. Leg swelling much better. Objective: Vital Signs Temp Pulse Resp BP Pulse Ox 36.6 C 115 H 18 101/75 95 10/15/18 07:42 10/15/18 12:00 10/15/18 12:00 10/15/18 12:00 10/15/18 12:00 Laboratory Results 10/12/18 03:20 10/15/18 03:40 10/14/18 10/15/18 10/16/18 05:59 05:59 05:59 Intake Total 1040 1750 Output Total 1550 1925 Balance -510 -175 PT 16.1 SEC (12.0-15.0) H 10/11/18 11:15 INR 1.27 (0.83-1.16) H 10/11/18 11:15 - Physical Exam Constitutional: no apparent distress Eyes: PERRL, anicteric sclera, EOMI Ears, Nose, Mouth, Throat: moist mucous membranes, hearing normal, ears appear normal, no oral mucosal ulcers Cardiovascular: regular rate and rhythym, systolic murmur, edema (1+ at ankles) , No JVD Respiratory: no respiratory distress, no rales or rhonchi, clear to auscultation Gastrointestinal: normoactive bowel sounds, soft, non-tender abdomen, no palpable masses Genitourinary: no bladder fullness, no bladder tenderness, no renal bruits Skin: no rashes or abrasions, no fluctuance, no induration Musculoskeletal: full muscle strength, no muscle tenderness, normal joint ROM Neurologic: AAOx3, sensation intact bilaterally Psychiatric: interacting appropriately, not anxious, not encephalopathic, thought process linear ICD10 Worksheet Patient Problems: Problems Problem Status Onset CHF (congestive heart failure) Acute
[2018-10-15] MEDS: FUROSEMIDE 40 MG TAB PO SCH (15:54)
[2018-10-15] MEDS: MAGNESIUM CHLORIDE 64 MG TAB PO SCH (15:54)
--- NOTE | 2018-10-15 16:09 | ASMTCMCOM ---
CM Note CM Note Notes: 10/15/2018 Case Management Note Discussed pt during rounds. Leann was present. Pt continues to withdraw from ETOH, diuresis continues. Met w/pt twice today to discuss discharge plan. Leann was present for first meeting. Discussed intensive outpatient group therapy through [facility]. Pt declined. Met w/pt this afternoon. Pt considering one on one counseling. Pt confirmed Leann is a resource for discharge planning. Encouraged pt to discuss with Leann and use [employer] [facility] to find providers. Requested appointment be set prior to discharge. Pt uncertain of which path forward he will chose. Pt unsure if alcohol cessation is primary goal. Case Management d/c poc: to be determined. Case Management to follow. Date Signed: 10/15/2018 04:08 PM Electronically Signed By:Marilyn Dunn RN
[2018-10-15] MEDS: LIDOCAINE 4%/MENTHOL 1% PATCH TD SCH (18:07)
[2018-10-15] MEDS: NALOXONE HCL SL SCH (20:36)
[2018-10-15] MEDS: BUPRENORPHINE HCL SL SCH (20:36)
[2018-10-16] MEDS: PATCH REMOVAL 1 EA PATCH TD SCH (04:57)
[2018-10-16 07:54] VITALS: BP 118/87
[2018-10-16] MEDS: CARVEDILOL 6.25 MG TAB PO SCH (08:30)
[2018-10-16] MEDS: SPIRONOLACTONE 25 MG TAB PO SCH (08:31)
[2018-10-16] MEDS: LISINOPRIL 5 MG TAB PO SCH (08:31)
[2018-10-16] MEDS: MAGNESIUM CHLORIDE 64 MG TAB PO SCH (08:31)
[2018-10-16] MEDS: THIAMINE HCL 100 MG TAB PO SCH (08:31)
[2018-10-16] MEDS: FUROSEMIDE 40 MG TAB PO SCH (08:31)
--- NOTE | 2018-10-16 10:07 | HOSPPROG ---
Hospitalist Progress Note Assessment/Plan: 38yo M with history of alcohol and opiate abuse presented from cardiology clinic with significant weigh gain and edema found to have LVEF of 10%. 1. Acute systolic CHF: New diagnosis. Likely etoh-related. [facility] clean. Weight down 12-14kg this admission. - Cardiology primary - Diuresing well on PO lasix - Continue lisinopril, coreg, spironolactone 2. Etoh dependence and withdrawal: Has not received any benzodiazepines in >24 hours, no signs of withdrawal. - I think he is safe to discharge from an etoh withdrawal stand point - Case management and myself have met with patient/ and relayed importance of etoh cessation and given resources (AA, outpatient rehab, etc). He informed me this morning that he has applied for an appointment with an outpatient psychologist and plans to re-convene with Selvin Armenta. 3. Hyponatremia: Improving. 4. Abnormal LFTs: Consistent with congestive hepatopathy. Improving. 5. Obesity, nocturnal hypoxia: Needs outpatient sleep study. 6. Elevated ferritin: Mild and not at a level that causes end-organ damage typically. Should have outpt follow up. 7. Opiate use disorder: In remission. Continue home suboxone. VTE ppx: SCDs, ambulation Code: full Diet: cardiac Dispo: ok to discharge from medicine stand point. Discussed with news wire photo operator Kristina Kearns. Subjective: Ready to go home. Breathing well, swelling has almost resolved in legs. No shakes/sweating or nausea. Tolerating PO. Objective: Vital Signs Temp Pulse Resp BP Pulse Ox 37.1 C 103 H 19 118/87 H 94 10/16/18 07:53 10/16/18 07:53 10/16/18 07:53 10/16/18 07:53 10/16/18 07:53 Laboratory Results 10/12/18 03:20 10/16/18 03:04 10/15/18 10/16/18 10/17/18 05:59 05:59 05:59 Intake Total 1750 700 Output Total 1925 1750 Balance -175 -1050 PT 16.1 SEC (12.0-15.0) H 10/11/18 11:15 INR 1.27 (0.83-1.16) H 10/11/18 11:15 - Physical Exam Constitutional: no apparent distress, appears nourished Eyes: PERRL, anicteric sclera, EOMI Ears, Nose, Mouth, Throat: moist mucous membranes, hearing normal, ears appear normal, no oral mucosal ulcers Cardiovascular: systolic murmur, tachycardia, edema (trace BLE), No JVD Respiratory: no respiratory distress, no rales or rhonchi, clear to auscultation Gastrointestinal: normoactive bowel sounds, soft, non-tender abdomen, no palpable masses Genitourinary: no bladder fullness, no bladder tenderness, no renal bruits Skin: no rashes or abrasions, no fluctuance, no induration Musculoskeletal: full muscle strength, no muscle tenderness, normal joint ROM Neurologic: AAOx3, sensation intact bilaterally Psychiatric: interacting appropriately, not anxious, not encephalopathic, thought process linear ICD10 Worksheet Patient Problems: Problems Problem Status Onset CHF (congestive heart failure) Acute
--- NOTE | 2018-10-16 10:15 | ASMTLACE ---
IZABELLAE Length of stay for Answers: 4-6 days current admission Acuity / Level of Answers: Yes Care: Did the patient have an inpatient admission? Comorbidities - select Answers: Congestive heart failure all that apply # of Emergency department Answers: 1-2 visits in the last 6 months Social determinants Answers: History of substance abuse (ETOH, street drugs, prescription drugs, etc.) Score: 13 Date Signed: 10/16/2018 10:14 AM Electronically Signed By:Altagracia Murphy RN
--- NOTE | 2018-10-16 10:20 | ASMTCMCOM ---
CM Note CM Note Notes: Patient medically ready for discharge today. Met with patient to finalize disposition plan. CM on previous day provided resources and instruction on outpatient alcohol therapy. As a follow-up to yesterday's interaction, CM offered further resources and assistance. Patient was hesitant to agree to treatment and did not want to engage fully in the conversation. He was able to articulate his plan to follow-up with an individual counselor and states he has already done some research. D/W RN. will transport home. Plan: D/C home independently with follow-up as stated above. Date Signed: 10/16/2018 10:19 AM Electronically Signed By:Altagracia Murphy RN
--- NOTE | 2018-10-16 11:09 | GDS ---
[f rep st] DISCHARGE SUMMARY ADMISSION DIAGNOSES: 1. Acute systolic heart failure with severely depressed ejection fraction of 10% due to alcohol abus e. 2. Alcohol abuse. 3. Hypertension. 4. History of opioid abuse, now on Suboxone. 5. Valvular heart disease. 6. Likely sleep apnea. DISCHARGE DIAGNOSES: 1. Acute systolic heart failure, improved with diuresis. 2. Alcohol abuse status post detoxification with Ativan and not requiring Ativan in the past 24 hour s. 3. Hypertension. 4. Valvular heart disease (mitral and tricuspid regurgitation). 5. Likely sleep apnea. PROCEDURES DURING ADMISSION: 1. Right and left heart catheterization with Dr. Gonzalez on 10/11/2018. Please see full report. In summary: Normal coronary arteries. Ejection fraction 10%. Wedge pressure 26. Pulmonary pressure 6 12/16. Calculated Judith cardiac output 8.1 L/minute with an index of 3.2. 2. Electrocardiogram: Sinus tachycardia with minimal diffuse repolarization abnormalities. 3. Outpatient echocardiogram not done during this admission: Moderately dilated left ventricle with severely reduced ejection fraction of 10%. Diffuse global hypokinesis. Moderately dilated right ve ntricle with moderately reduced RV systolic function. Severe biatrial dilation. Moderate mitral reg urgitation and severe tricuspid regurgitation with estimated pulmonary pressure 43 mmHg. Ascending a clifford is 3.9 cm. HOSPITAL COURSE: The patient is a 38-year-old male with a history of heavy alcohol abuse and past hi story of opioid use, currently on Suboxone. He is admitted after an outpatient cardiac cath showed s everely elevated left and right heart filling pressures and ejection fraction of 10%. He was diurese d aggressively with IV Lasix and spironolactone. His weight decreased 14 kg during admission with re solution of edema and dyspnea. For the first 2-1/2 days of his hospital course, he received vodka three times daily per the patient' s request as he was not ready to consider alcohol cessation. After October 13, he received only At andrea per [facility] protocol and was able to taper down on dose. His last dose of Ativan was at 1:30 a.m. This was greater than 24 hours prior to discharge. He was no longer tremulous, reported he was not anxious and reported that he was willing to continue abstinence from alcohol at home. DISCHARGE PHYSICAL EXAM: VITAL SIGNS: Blood pressure 118/87, heart rate 103, oxygen saturation 94% on room air, he is afebrile. GENERAL: Well-appearing middle-aged male in no acute distress. CARDIO VASCULAR: JVP 10 cm of water. Regular rate and rhythm. Slightly tachy. No murmurs. No S3. LUNGS : Clear bilateral without wheeze, rhonchi, or rales. EXTREMITIES: Trace bilateral ankle edema. DISCHARGE LABORATORIES: Last CBC was on October 12, normal other than a slight predominance of mon ocytes. INR on admission was 1.27. Sodium 138, potassium 4.9, chloride 102, bicarb 29, BUN 24, crea tinine 0.8. His AST initially was 141 and then improved to 68. ALT initially 94 and normalized to 6 3. Total protein 6.2. LDL cholesterol 101. TSH was normal earlier this year. Normal iron TIBC and 45% iron saturation with elevated ferritin of 473. Magnesium 1.9. DISCHARGE MEDICATIONS: Please see medication reconciliation. To summarize: New medications are car vedilol 6.25 mg b.i.d., Lasix 40 mg once daily, lisinopril 5 mg daily, magnesium chloride 64 mg table t once daily, spironolactone 25 mg daily, and thiamine 100 mg. He will also continue his usual home dose of Suboxone. He was not discharged on Ativan. DISCHARGE INSTRUCTIONS: 1. Do not drink alcohol. 2. Follow up with Dr. Damián Lui in [facility] as scheduled on October 22 at 3 p.m. 3. Consultation at [facility] for probable sleep apnea. 4. Establish relationship with outpatient alcohol management program as discussed in case management rounds. The patient has previously been at [facility] and the patient's reports other resource s that are available to them and the patient seems motivated to engage in this. 5. Call [facility] with a weight gain of more than 2 pounds in 24 hours. Weigh yourself daily. Call for chest pain, dyspnea, edema, palpitations, or syncope. The patient was currently discharged in stable condition to home. Greater than 30 minutes was spent in coordination of care and direct patient contact. /[id number]/MODL
--- NOTE | 2018-10-16 11:21 | ASDISCHSUM ---
Discharge Information Plan Status:Home with No Needs Medically Cleared to Leave: Discharge Date: D/C Disposition:Home, Routine, Self-Care ADT D/C Disposition:Home, Routine, Self-Care Projected Discharge Date:10/12/2018 11:00 AM Transportation at D/C:Family Discharge Delay Reason: Follow-Up Date:10/12/2018 11:00 AM Discharge Slot: Final Diagnosis: Placement Information Referral Type:Palliative Care Referral ID:[id number] Provider Name: Address 1: Phone Number: Address 2: Fax Number: City: Selection Factors: State: Patient Contact Information Contact Name:SAWYERVERAMATEO Relationship: Address:[address] [place] [address] City:[place] Alternate Phone: [facility]/Zip Code:[place] [address] Email: Financial Information Financial Class:[employer] [facility] Primary Plan Desc:[facility] Primary Plan Number:[id number] Secondary Plan Desc: Secondary Plan Number: Assessment Information [facility] CM Progress Note CM Note CM Note Notes: 10/12/2018 Case Management Note Pt admitted for CHF and ETOH withdrawl. Met w/pt in the morning. Pt unwilling to engage in conversation about alcohol consumption. Pt has completed inpatient rehab twice at [facility] approximately 6 years ago. Pt is currently on suboxone through Dr. Edwin Torre In [place]. At this time pt refuses resources and does not want to stop drinking. Met w/jolene Noriega [phone]. Leann reports pt achieved sobriety for 3 - 6 months after [facility] treatment and then started using alcohol. Currently Leann estimates pt consumes 3 handles of vodka per week. Pt drinks round the clock, per Leann, mixing vodka into gatorade during the day and switching to cocktails late in the afternoon. Arranged Palliative Care meeting with Tiffany for pt to discuss goals of care. Encouraged to use insurance benefits to find counselor for support. Pt and are strong in their junaid and plan to rely on their hand molder and caster for guidance. Pt mother lives in [place] and is support for both, father in his early 60's. is hopeful pt will consider inpatient rehab. explored [employer] coverage and pt has inpatient options including [facility], [facility], [facility], [facility], [facility], [facility]. Informed that pt has to call and complete assessment screening for admittance to a program. Case Management d/c poc: to be determined. Date Signed: 10/12/2018 04:22 PM Electronically Signed By:Marilyn Dunn RN [facility] GENET Progress Note CM Note CM Note Notes: Chart reviewed. Met with patient to review plan of care. 38 year old male with fulminant heart failure thought to be likely alcohol induced. We discussed his treatment options available as far as alcohol withdrawal and that he has in fact replaced his previous opiate addiction with alcohol. CM stressed to him that success at home "self tapering" alcohol was not likely to be successful and carried significant risk to his health. He is feeling that he has no control but expressed clearly he wants to go home and not seek withdrawal support here or at other inpatient facility. He reports he see's a psychiatrist for care. He denies depression and does not believe he self medicates with ETOH. He is tremulous despite his current doses of alcohol. GENET explained that his medical team would feel it in his best interest to go through active withdrawal under medical supervision but again he is resistant. I have suggested that he make an action plan to demonstrate a sincere intent to stop alcohol by seeking follow up and choosing a program to help him. CM to follow for need. Plan: TBD Date Signed: 10/14/2018 12:13 PM Electronically Signed By:Tereza Calzada RN [facility] Length of stay for Answers: 4-6 days current admission Acuity / Level of Answers: Yes Care: Did the patient have an inpatient admission? Comorbidities - select Answers: Congestive heart failure all that apply # of Emergency department Answers: 1-2 visits in the last 6 months Social determinants Answers: History of substance abuse (ETOH, street drugs, prescription drugs, etc.) Score: 13 Date Signed: 10/16/2018 10:14 AM Electronically Signed By:Altagracia Murphy RN [facility] CM Progress Note CM Note CM Note Notes: 10/15/2018 Case Management Note Discussed pt during rounds. Leann was present. Pt continues to withdraw from ETOH, diuresis continues. Met w/pt twice today to discuss discharge plan. Leann was present for first meeting. Discussed intensive outpatient group therapy through [facility]. Pt declined. Met w/pt this afternoon. Pt considering one on one counseling. Pt confirmed Leann is a resource for discharge planning. Encouraged pt to discuss with Leann and use [employer] eliza to find providers. Requested appointment be set prior to discharge. Pt uncertain of which path forward he will chose. Pt unsure if alcohol cessation is primary goal. Case Management d/c poc: to be determined. Case Management to follow. Date Signed: 10/15/2018 04:08 PM Electronically Signed By:Marilyn Dunn RN [facility] CM Progress Note CM Note CM Note Notes: Patient medically ready for discharge today. Met with patient to finalize disposition plan. CM on previous day provided resources and instruction on outpatient alcohol therapy. As a follow-up to yesterday's interaction, CM offered further resources and assistance. Patient was hesitant to agree to treatment and did not want to engage fully in the conversation. He was able to articulate his plan to follow-up with an individual counselor and states he has already done some research. D/W RN. will transport home. Plan: D/C home independently with follow-up as stated above. Date Signed: 10/16/2018 10:19 AM Electronically Signed By:Altagracia Murphy RN Intervention Information Intervention Type:*Incorrect Registration Date of Service:10/12/2018 06:33 AM Patient Type:Observation Staff Member:STUART Marion, Vicki Hours: Discipline: Severity: Comment:
== END 2018-10-16 11:45 | disposition home or self-care (01) | DRG 286 ==
LOC: FCATH 11:03 → F2W 13:43 → OBSVTOIN 15:48 → F2W 16:05
PROVIDERS: ADMIT Internal Medicine Cardiovascular Disease; ATTEND Internal Medicine Cardiovascular Disease
DX: I11.0 Hypertensive heart disease with heart failure (principal); I50.21 Acute systolic (congestive) heart failure; F10.20 Alcohol dependence, uncomplicated; E87.1 Hypo-osmolality and hyponatremia; I38 Endocarditis, valve unspecified; G47.33 Obstructive sleep apnea (adult) (pediatric); F11.21 Opioid dependence, in remission; E66.9 Obesity, unspecified; Z68.29 Body mass index [BMI] 29.0-29.9, adult
CPT/HCPCS: C1760; J1200; J1644; J1885; J1940; J2250; J3010; J3411; J3475; Q9967

== ENCOUNTER → 2018-10-28 | Outpatient (CLI) | payer OTHER | LOC: FCPNEURO 20:00 | PROVIDERS: ATTEND Psychiatry & Neurology Sleep Medicine | DX: G47.33 Obstructive sleep apnea (adult) (pediatric) (principal) ==